=== PATIENT | male | born 1995 | race Caucasian/White ===

== ENCOUNTER 2018-12-04 15:31 | Emergency (ER) | payer MEDICAID ==
[~2018-12-04] VITALS: Ht 162.6 cm; Wt 69.9 kg
[2018-12-04 15:37] VITALS: BP 128/89
--- NOTE | 2018-12-04 15:55 | NUR ---
C/O CHEST DISCOMFORT AND PALPITATIONS X 3O MIN. PT STATES HE WAS GIVEN AN EDIBLE AND IS NOW NOT FEELING WELL. SKIN IS PINK/WARM/DRY; AAOX4 ; BEDSIDE MONITOR SHOWS ST 135S LUNGS CLEAR BL; HR EVEN AND REGULAR; PT DENIES ANY FEVER, CP, SOB, OR COUGH AT THIS TIME; PATIENT STATES PAIN OF 0/10 AT THIS TIME; VSS; PATIENT POSITIONED FOR COMFORT; HOB ELEVATED; BEDRAILS UP X2; BED DOWN. ER MD MADE AWARE OF PT STATUS.
[2018-12-04] MEDS ORDERED: NACL 0.9% 1,000 ML IV ONE ×2 (16:05→18:15)
[2018-12-04] MEDS ORDERED: LORazepam 2 MG/ML VIAL IVP ONE (16:05)
[2018-12-04 16:33] LABS: BASOPHILS # (AUTO) 0.1 K/uL (0.00-0.22); BASOPHILS % (AUTO) 0.7 % (0.0-2.0); EOSINOPHILS # (AUTO) 0.1 K/uL (0-0.4); EOSINOPHILS % (AUTO) 0.9 % (0.0-4.0); HEMATOCRIT 44.6 % (36-52); HEMOGLOBIN 14.9 g/dL (12.0-18.0); LYMPHOCYTES # (AUTO) 4.5 K/uL (2.0-11.5); LYMPHOCYTES % (AUTO) 49.9 % (20.5-51.1); MEAN CORPUSCULAR HEMOGLOBIN 28 pg (27-31); MEAN CORPUSCULAR HGB CONC 34 g/dL (33-37); MEAN CORPUSCULAR VOLUME 82.9 fL (80-94); MONOCYTES # (AUTO) 0.5 K/uL (0.8-1.0); MONOCYTES % (AUTO) 5.1 % (1.7-9.3); NEUTROPHILS # (AUTO) 3.9 K/uL (1.8-7.7); NEUTROPHILS % (AUTO) 43.4 % (42.2-75.2); PLATELET COUNT (AUTO) 215 K/uL (140-450); RED BLOOD CELL COUNT(AUTO) 5.37 MIL/uL (4.20-6.10); RED CELL DISTRIBUTION WIDTH 13.6 % (11.6-13.7); WHITE BLOOD COUNT (AUTO) 8.9 K/uL (4.8-10.8)
[2018-12-04 16:53] LABS: ALBUMIN 4.6 g/dL (3.4-5.0); ANION GAP 13.3 (8-16); CARBON DIOXIDE 26.8 mmol/L (21-32); POTASSIUM 3.1 mmol/L (3.5-5.1); TOTAL BILIRUBIN 0.4 mg/dL (0.0-1.0)
[2018-12-04 16:55] LABS: PROTHROMBIN TIME 9.8 secs (10.8-13.4)
[2018-12-04 17:43] LABS: BARBITURATE, URINE NEG. ng/ml (NEG <=200); BENZODIAZEPINE, URINE NEG. ng/mL (NEG <=200); CANNABINOID, URINE POS. ng/mL (NEG <=50); COCAINE, URINE NEG. ng/mL (NEG <=300); OPIATE, URINE NEG. ng/mL (NEG <=2000); PHENCYCLIDINE SCREEN,URINE NEG. ng/mL (NEG <=25)
[2018-12-04] MEDS ORDERED: POTASSIUM CHLORIDE 10 MEQ TABER PO ONE (17:50)
--- NOTE | 2018-12-04 18:07 | NUR ---
PT RESTING IN BED, STATED HE FEELS BETTER.
--- NOTE | 2018-12-04 19:08 | NUR ---
REPORT GIVEN TO SUE DIAZ AND NADINE DIAZ .
--- NOTE | 2018-12-04 19:35 | NUR ---
RECEIVED REPORT FROM KING RN, PT CURRENTLY RESTING COMFORTABLY WITH MOTHER AT BEDSIDE.BED IN LOW POSITION, HOB ELEVATED, SIDE RAIL X 1 UP. WILL CONITNUE TO MONITOR.
--- NOTE | 2018-12-04 20:28 | NUR ---
PT DC BY DR FARR VSS, NO SOB, 0/10 PAIN, PT GIVEN RX FOR ZOFRAN, PT TAUGHT ABOUT DX AND TX AND ALL QUESTIONS ANSWERED. PATIENT ABLE TO AMBULATE. WAS INSTRUCTED TO FOLLOW UP WITH PRIMARY CARE PROVIDER.
[2018-12-05 03:49] VITALS: BP 111/72
--- NOTE | 2018-12-05 12:31 | NUR ---
LATE ENTRY: LORAZEPAM WAS GIVEN 0.5MG ON 12/04/2018 [id number], WASTED 1.5 MG.
== END 2018-12-04 20:28 | disposition home or self-care (01) ==
LOC: MED 15:31
DX: R00.2 Palpitations (principal); T40.7X5A Adverse effect of cannabis (derivatives), initial encounter; E87.6 Hypokalemia; Y92.89 Other specified places as the place of occurrence of the external cause
CPT/HCPCS: 36415; 71045; 80053; 80305; 83735; 85025; 85610; 93005; 96374; 99284; J2060; J7030

== ENCOUNTER 2021-02-01 02:40 | Inpatient (IN) | payer MEDICAID, SELFPAY ==
[~2021-02-01] VITALS: Ht 165.1 cm; Wt 71.7 kg
[2021-02-01 02:46] VITALS: BP 111/84
--- NOTE | 2021-02-01 02:46 | NUR ---
TO BED AMBULATORY
--- NOTE | 2021-02-01 02:50 | NUR ---
PT. IS A 25 Y/O MALE WHO CAME INTO ED WITH C/O OF LOWER BACK PAIN. HE STATES THAT THE PAIN RADIATES TO HIS STOMACH AND THAT IT STARTED YESTERDAY MORNING AT AROUND 10AM. HE RATES HIS PAIN AT A 9/10 ON THE PAIN SCALE. PT. STATES THAT HE ALSO FEELS NAUSEATED, BUT HAS NOT VOMITED AND DENIES DIARRHEA. HE ALSO DENIES ANY TRAUMA. SKIN IS PINK/WARM/DRY; AAOX4 WITH EVEN AND STEADY GAIT; HR EVEN AND REGULAR; PT DENIES ANY FEVER, CP, SOB, OR COUGH AT THIS TIME; VSS; PATIENT POSITIONED FOR COMFORT; HOB ELEVATED; BEDRAILS UP X2; BED DOWN. ER MD MADE AWARE OF PT STATUS. PMH: DENIES ALLERGES: HAMZAH
[2021-02-01] MEDS ORDERED: KETOROLAC 30 MG/ML VIAL IM ONE (02:55)
[2021-02-01 03:07] LABS: APPEARANCE,URINE CLOUDY (CLEAR); BILIRUBIN,URINE NEGATIVE (NEGATIVE); BLOOD, URINE 3+ (NEGATIVE); COLOR,URINE YELLOW (YELLOW); LEUKOCYTE ESTERASE ,URINE NEGATIVE (NEGATIVE); NITRITE, URINE NEGATIVE (NEGATIVE); PH,URINE 7.5 (5.0-9.0); UGLUCOSE NEGATIVE (NEGATIVE)
[2021-02-01] MEDS ORDERED: NACL 0.9% 1,000 ML IV ONE ×3 (03:10→04:50)
[2021-02-01 03:28] LABS: BASOPHILS # (AUTO) 0.3 K/uL (0.00-0.22); BASOPHILS % (AUTO) 2.2 % (0.0-2.0); EOSINOPHILS # (AUTO) 0.1 K/uL (0-0.4); EOSINOPHILS % (AUTO) 0.8 % (0.0-4.0); HEMATOCRIT 41.6 % (36-52); HEMOGLOBIN 13.8 g/dL (12.0-18.0); LYMPHOCYTES # (AUTO) 2.3 K/uL (2.0-11.5); LYMPHOCYTES % (AUTO) 20.4 % (20.5-51.1); MEAN CORPUSCULAR HEMOGLOBIN 28 pg (27-31); MEAN CORPUSCULAR HGB CONC 33 g/dL (33-37); MEAN CORPUSCULAR VOLUME 83.6 fL (80-94); MONOCYTES % (AUTO) 8.3 % (1.7-9.3); NEUTROPHILS # (AUTO) 7.8 K/uL (1.8-7.7); NEUTROPHILS % (AUTO) 68.3 % (42.2-75.2); PLATELET COUNT (AUTO) 188 K/uL (140-450); RED BLOOD CELL COUNT(AUTO) 4.98 MIL/uL (4.20-6.10); RED CELL DISTRIBUTION WIDTH 13.6 % (11.6-13.7); WHITE BLOOD COUNT (AUTO) 11.5 K/uL (4.8-10.8)
[2021-02-01 03:37] LABS: WBC,URINE 0-5 /HPF (0-5)
[2021-02-01 04:00] LABS: ANION GAP 13.9 (8-16); CARBON DIOXIDE 27.5 mmol/L (21-32); POTASSIUM 3.4 mmol/L (3.5-5.1)
[2021-02-01 04:01] LABS: CREATININE 1.2 mg/dL (0.6-1.3); TOTAL BILIRUBIN 0.4 mg/dL (0.0-1.0)
[2021-02-01] MEDS ORDERED: cefTRIAXone 1,000 MG VIAL ONE (04:11)
[2021-02-01] MEDS ORDERED: POTASSIUM CHLORIDE 10 MEQ TABER PO ONE (04:20)
--- NOTE | 2021-02-01 04:33 | NUR ---
PT. IS CALM AND COOPERATIVE. RESTING COMFORTABLY IN BED. VOICES NO COMPLAINTS.
[2021-02-01] MEDS ORDERED: MORPHINE SULFATE 4 MG/ML SYR IVP ONE (04:50)
--- NOTE | 2021-02-01 05:48 | NUR ---
TASHI (ROCIO) COMPLETED AND TAKEN TO LAB.
[2021-02-01] MEDS ORDERED: DEXT 5% /NACL 0.9% 1,000 ML IV SCH (06:20)
--- NOTE | 2021-02-01 07:30 | NUR ---
Received report from Jakub RN, patient appears to be resting at this time. Patient on bedside conveyor monitor.
[2021-02-01] MEDS ORDERED: ACETAMINOPHEN 325 MG TAB PO PRN (07:55)
[2021-02-01] MEDS ORDERED: guaiFENesin DM 200/20 MG-10 ML 10 ML UDC PO PRN (07:55)
[2021-02-01] MEDS ORDERED: ONDANSETRON 4 MG/2 ML VIAL IM/IVP PRN (07:55)
[2021-02-01] MEDS ORDERED: POTASSIUM CHLORIDE 10 MEQ TABER PO PRN (07:55)
[2021-02-01] MEDS ORDERED: ZOLPIDEM 5 MG TAB PO PRN (07:55)
[2021-02-01] MEDS ORDERED: DOCUSATE SODIUM 100 MG GELCAP PO PRN (07:55)
[2021-02-01] MEDS ORDERED: HYDROcodone/APAP 7.5/325 MG 1 TAB PO PRN (07:55)
--- NOTE | 2021-02-01 08:18 | NUR ---
MRSA swab collected and walked down to lab
[2021-02-01] MEDS: PANTOPRAZOLE 40 MG TABEC PO SCH (08:46)
[2021-02-01] MEDS: TAMSULOSIN 0.4 MG CAP PO SCH ×2 (08:46→20:08)
[2021-02-01] MEDS: DEXT 5% /NACL 0.9% 1,000 ML IV SCH (09:15)
[2021-02-01 09:35] LABS: MAGNESIUM 2.2 mg/dL (1.8-2.4); THYROID STIMULATING HORMONE 2.56 uIU/mL (0.34-3.74)
[2021-02-01 10:00] LABS: PROTHROMBIN TIME 9.6 secs (10.8-13.4)
[2021-02-01 10:14] LABS: CHOL/HDL RATIO 4.6 (1-4.5)
--- NOTE | 2021-02-01 11:23 | NUR ---
Patient will be admitted to care of Dr. Jorgensen. Admited to TELE. Will go to room 106A. Belongings list completed. Report to Leandra.
[2021-02-01 11:30] VITALS: BP 116/65
--- NOTE | 2021-02-01 11:30 | NUR ---
PRIOR TO PATIENT ARRIVAL RECEIVED REPORT FROM ED NURSE. PT RESTING IN BED. ABLE TO MAKE NEEDS KNOWN. RESPIRATIONS EVEN AND UNLABORED WITH NO SOB OR RESPIRATORY DISTRESS. SKIN WARM AND DRY TO TOUCH. SAFETY MEASURES IN PLACE. WILL CONTINUE TO MONITOR
--- NOTE | 2021-02-01 11:45 | NUR ---
PT OFF TO OR. REPORT GIVEN TO OR STAFF. WILL CONTINUE TO MONITOR
[2021-02-01] MEDS ORDERED: fentaNYL citrate 0.05 MG/ML VIAL IVP PRN (12:10)
[2021-02-01] MEDS ORDERED: ONDANSETRON 4 MG/2 ML VIAL IVP PRN (12:10)
[2021-02-01] MEDS: LACTATED RINGERS 1,000 ML IV SCH ×2 (12:10→20:07)
[2021-02-01] MEDS ORDERED: diphenhydrAMINE 50 MG/ML VIAL IVP PRN (12:10)
[2021-02-01] MEDS ORDERED: MEPERIDINE 25 MG/ML SYR IVP PRN (12:10)
[2021-02-01 12:22] LABS: BARBITURATE, URINE NEGATIVE ng/ml (NEG <=200); BENZODIAZEPINE, URINE NEGATIVE ng/mL (NEG <=200); CANNABINOID, URINE NEGATIVE ng/mL (NEG <=50); COCAINE, URINE NEGATIVE ng/mL (NEG <=300); OPIATE, URINE NEGATIVE ng/mL (NEG <=2000); PHENCYCLIDINE SCREEN,URINE NEGATIVE ng/mL (NEG <=25)
[2021-02-01] MEDS ORDERED: SEVOFLURANE 250 ML BTL INH ONE (13:20)
[2021-02-01] MEDS ORDERED: ROCURONIUM 50 MG/5 ML VIAL IV ONE (13:20)
[2021-02-01] MEDS ORDERED: KETOROLAC 30 MG/ML VIAL ONE (13:20)
[2021-02-01] MEDS ORDERED: METOCLOPRAMIDE 10 MG/2 ML INJ VIAL ONE (13:20)
[2021-02-01] MEDS ORDERED: NEOSTIGMINE 1:1000 10 MG/10 ML VIAL ONE (13:20)
[2021-02-01] MEDS ORDERED: ONDANSETRON 4 MG/2 ML VIAL ONE (13:20)
[2021-02-01] MEDS ORDERED: DEXAMETHASONE 4 MG/ML VIAL ONE (13:20)
[2021-02-01] MEDS ORDERED: fentaNYL citrate 0.05 MG/ML VIAL ONE (13:20)
[2021-02-01] MEDS ORDERED: LIDOCAINE 2% 100 MG/5 ML SYR IVP ONE (13:20)
[2021-02-01] MEDS ORDERED: PROPOFOL 200 MG/20 ML VIAL IV ONE (13:20)
[2021-02-01] MEDS ORDERED: GLYCOPYRROLATE 0.2 MG/ML VIAL ONE (13:20)
--- NOTE | 2021-02-01 14:00 | NUR ---
PT BACK FROM SURGERY. REPORT GIVEN AT BEDSIDE. POST OP VITAL SIGNS OBTAINED. PT IS STABLE. WILL CONTINUE TO MONITOR
[2021-02-01] MEDS ORDERED: MORPHINE SULFATE 2 MG/ML SYR IVP PRN (14:35)
--- NOTE | 2021-02-01 14:48 | NUR ---
PT COMPLAINED OF SEVERE PAIN. PRN MORPHINE ADMINISTERED PRESCRIBED PER MD ORDER. PT TOLERATED WELL. MEDICATION EDUCATION ADMINISTERED. PT VERBALIZED UNDERSTANDING. SAFETY MEASURES IN PLACE. WILL CONTINUE TO MONITOR
--- NOTE | 2021-02-01 15:51 | NUR ---
PATIENT HAS BEEN SCREENED AND CATEGORIZED LOW NUTRITION RISK. PATIENT WILL BE SEEN WITHIN 7 DAYS OF ADMISSION. 02/07/[address]
[2021-02-01 16:00] VITALS: BP 104/66
--- NOTE | 2021-02-01 16:30 | NUR ---
PATIENT RESTING IN BED. ABLE TO MAKE NEEDS KNOWN. RESPIRATIONS EVEN AND UNLABORED WITH NO SOB OR RESPIRATORY DISTRESS. SKIN WARM AND DRY TO TOUCH. SAFETY MEASURES IN PLACE. WILL CONTINUE TO MONITOR
--- NOTE | 2021-02-01 17:45 | NUR ---
PT RESTING IN BED. ABLE TO MAKE NEEDS KNOWN. RESPIRATIONS EVEN AND UNLABORED WITH NO SOB OR RESPIRATORY DISTRESS. SAFETY MEASURES IN PLACE. WILL CONTINUE TO MONITOR
--- NOTE | 2021-02-01 19:18 | NUR ---
ENDORSED AT BEDSIDE TO NIGHTSHIFT NURSE FOR CONTINUITY OF CARE. PT IS STABLE
--- NOTE | 2021-02-01 19:25 | NUR ---
RECEIVED REPORT AND CARE FROM DAYSHIFT RN. PATIENT ALERT AND ORIENTED X4 TO PERSON, PLACE, TIME AND EVENT. PATIENT RESTING IN A POSITION OF COMFORT WITH THE HOB 30 DEGREES, AIRWAY OPEN PATENT, CLEAR AND MAINTAINABLE, ON ROOM AIR, OXYGEN SATURATION AT 97%. PATIENT HAS FEEDING ORDER OF REGULAR DIET, TOLERATING WELL. PATIENT CONNECTED TO CONTINUOUS TELE MONITOR, NSR IN TELE AT 92 HR. WILL CONTINUE TO CLOSELY MONITOR. PATIENT HAS IV SITES OF A LEFT AC 20G, DRESSING DRY, INTACT, SITE FLUSHING WELL. IV DRIPS RUNNING INCLUDE LACTATED RINGERS AT 120 ML/HR. PATIENT DRY WEIGHT IS APPROXIMATELY 72.1 KG. PATIENT CURRENTLY ABLE TO AMBULATE WITH RN ASSISTANCE AND ABLE TO USE BEDSIDE URINAL. PATIENT DENIES ANY PAIN WHEN ASKED. PATIENT IS CURRENTLY BEING OFFLOADED FROM PRESSURE POINTS WITH USE OF PILLOWS AND FREQUENT REPOSITIONING, EDUCATED ON THE IMPORTANCE OF REPOSITIONING FOR WOUND PREVENTION. THE CALL LIGHT IS PLACED WITHIN REACH AT THE BEDSIDE AND EDUCATED/FAMILIARIZED WITH CONTROLS. PROMOTING A RESTFUL ENVIRONMENT WITH DECREASED STIMULI IN THE ROOM. WILL CONTINUE TO REASSESS OFTEN, CLOSELY MONITOR AND FREQUENTLY ROUND THROUGHOUT THE SHIFT.
[2021-02-01 20:00] VITALS: BP 102/70
--- NOTE | 2021-02-01 20:30 | NUR ---
SCHEDULED MEDICATIONS GIVEN ORDERED BY MD, TOLERATING WELL. WILL CONTINUE TO CLOSELY MONITOR AND FREQUENTLY ROUND.
--- NOTE | 2021-02-01 21:04 | NUR ---
PATIENT CONTINUING TO REST IN A POSITION OF COMFORT, NO SIGNS OF DISTRESS OBSERVED WHILE AT BEDSIDE. PATIENT TRYING TO GET SOME REST. WILL CONTINUE TO CLOSELY MONITOR AND FREQUENTLY ROUND.
--- NOTE | 2021-02-01 23:02 | NUR ---
PATIENT ASLEEP IN A POSITION OF COMFORT, NO OBVIOUS SIGNS OF DISTRESS OBSERVED WHILE AT BEDSIDE. WILL CONTINUE TO REASSESS OFTEN, CLOSELY MONITOR AND FREQUENTLY ROUND.
[2021-02-02] VITALS: BP 110/60
--- NOTE | 2021-02-02 01:17 | NUR ---
GIVEN PRN NORCO FOR PAIN, PATIENT STATED FEELING PENILE PAIN POST PROCEDURE, ABLE TO URINATE. WILL CONTINUE TO REASSESS OFTEN, CLOSELY MONITOR AND FREQUENTLY ROUND.
--- NOTE | 2021-02-02 02:17 | NUR ---
PRN PAIN MEDICATION INTERVENTION EFFECTIVE, PATIENT STATED PAIN HAS REDUCED. WILL CONTINUE TO REASSESS OFTEN, CLOSELY MONITOR AND FREQUENTLY ROUND.
--- NOTE | 2021-02-02 03:28 | NUR ---
PATIENT ASLEEP IN A POSITION OF COMFORT, HOB 30 DEGREES, AIRWAY OPEN, CLEAR, PATENT AND MAINTAINABLE. NO OBVIOUS SIGNS OF DISTRESS OBSERVED WHILE AT BEDSIDE. WILL CONTINUE TO REASSESS OFTEN, CLOSELY MONITOR AND FREQUENTLY ROUND.
[2021-02-02 04:00] VITALS: BP 98/68
[2021-02-02] MEDS: LACTATED RINGERS 1,000 ML IV SCH ×3 (04:26→21:30)
--- NOTE | 2021-02-02 05:30 | NUR ---
PATIENT RESTING AWAKE, STATED TRYING PAIN MEDICATION HELPED AND TRYING TO SLEEP MORE, NO OBVIOUS SIGNS OF DISTRESS OBSERVED AT BEDSIDE. WILL CONTINUE TO REASSESS OFTEN, CLOSELY MONITOR AND FREQUENTLY ROUND.
[2021-02-02 05:59] LABS: ANION GAP 13.8 (8-16); CARBON DIOXIDE 27.9 mmol/L (21-32); CREATININE 0.9 mg/dL (0.6-1.3); POTASSIUM 3.7 mmol/L (3.5-5.1)
[2021-02-02 06:03] LABS: BASOPHILS % (AUTO) 0.1 % (0.0-2.0); HEMATOCRIT 41.9 % (36-52); HEMOGLOBIN 14.1 g/dL (12.0-18.0); LYMPHOCYTES # (AUTO) 1.5 K/uL (2.0-11.5); LYMPHOCYTES % (AUTO) 14.5 % (20.5-51.1); MEAN CORPUSCULAR HEMOGLOBIN 29 pg (27-31); MEAN CORPUSCULAR HGB CONC 34 g/dL (33-37); MEAN CORPUSCULAR VOLUME 84.6 fL (80-94); MONOCYTES # (AUTO) 0.6 K/uL (0.8-1.0); MONOCYTES % (AUTO) 5.6 % (1.7-9.3); NEUTROPHILS # (AUTO) 8.5 K/uL (1.8-7.7); NEUTROPHILS % (AUTO) 79.8 % (42.2-75.2); PLATELET COUNT (AUTO) 188 K/uL (140-450); RED BLOOD CELL COUNT(AUTO) 4.95 MIL/uL (4.20-6.10); RED CELL DISTRIBUTION WIDTH 14.3 % (11.6-13.7); WHITE BLOOD COUNT (AUTO) 10.6 K/uL (4.8-10.8)
--- NOTE | 2021-02-02 07:30 | NUR ---
ENDORSED CARE AND GAVE REPORT TO DAYSHIFT RN, VS STABLE.
--- NOTE | 2021-02-02 07:35 | NUR ---
RECEIVED PT FROM POLYSOMNOGRAPHIC TECHNOLOGIST NURSE, PT IS ASLEEP AND LYING ON THE BED WITH SIDE RAILS UP AND CALL LIGHT WITHIN REACH, IV LINES NOTED ON THE LAC G.20 WITH D5 NS INFUSING AT 40ML/HR, INTACT, PT IS ON RA AND RESPIRATION IS EVEN, VISIBLE CHEST RISE AND FALL, NO SIGN OF DISTRESS NOTED AND WILL MONITOR PT.
[2021-02-02] MEDS: DEXT 5% /NACL 0.9% 1,000 ML IV SCH (07:55)
[2021-02-02 08:00] VITALS: BP 102/58
[2021-02-02] MEDS: TAMSULOSIN 0.4 MG CAP PO SCH ×2 (09:18→22:16)
[2021-02-02] MEDS: PANTOPRAZOLE 40 MG TABEC PO SCH (09:18)
--- NOTE | 2021-02-02 09:18 | NUR ---
PT WAS GIVEN THE SCHEDULED AM MEDICATIONS NOW, TOLERATED AND NO SIGN OF DISTRESS NOTED. WILL CONTINUE TO CHRISTIAN LY.
[2021-02-02 10:07] LABS: T4 (THYROXINE) 7.6 ug/dL (4.5-12.0)
--- NOTE | 2021-02-02 11:45 | NUR ---
PT IS EATING HIS LUNCH NOW, DENIES PAIN.
[2021-02-02 12:00] VITALS: BP 115/53
--- NOTE | 2021-02-02 13:48 | NUR ---
PT WAS DOWNGRADED TO MS NOW.
--- NOTE | 2021-02-02 15:50 | NUR ---
PT IS RESTING NOW AND WATCHING TV, DENEIS PAIN AND NO SIGN OF DISTRESS NOTED.
[2021-02-02 16:00] VITALS: BP 107/55
--- NOTE | 2021-02-02 19:15 | NUR ---
ENDORSED PT TO MAJOR APPLIANCE ASSEMBLY SUPERVISOR NURSE, FOR CONTINUITY OF CARE.
--- NOTE | 2021-02-02 19:30 | NUR ---
RECEIVED REPORT FROM ANTHONY DIAZ DAYSHIFT NURSE AT BEDSIDE FOR CONTINUITY OF CARE, PT IN STABLE CONDITION.
[2021-02-02 20:00] VITALS: BP 105/68
--- NOTE | 2021-02-02 20:00 | NUR ---
PT LYING IN BED AOX4 WITH RAC 20 G INTACT AND RUNNING D5 NORMAL SALINE AT 40MLS/HR. V/S FOLLOWS: T 98.2 P 70 R 18 B/P 105/68 02 98% ON ROOM AIR. PT DENIES PAIN BUT HAS C/O OF BLOOD TINGED URINE. WILL CONTINUE TO MONITOR URINE OUTPUT AND VITAL SIGNS. ALL UNIVERSAL FALLS PRECAUTIONS IN PLACE.
--- NOTE | 2021-02-02 21:30 | NUR ---
MOTHER WAS UPDATED REGARDING PT CONDITION PER REQUEST. REINFORCED NEW VISITOR POLICY AND WITH REINFORCEMENT SHE VERBALIZED UNDERSTANDING. PT WAS GIVEN FLOMAX ORDERED. EDUCATION REGARDING MEDICATION PROVIDED AT BEDSIDE. PT VERBALIZED UNDERSTANDING. HE FT A 300MLS OF BLOOD TINGED URINE IN URINAL. PT ENCOURAGED TO HYDRATE PER POC. PT VERBALIZED UNDERSTANDING.
--- NOTE | 2021-02-02 22:30 | NUR ---
ROUNDS DONE, PT DENIES ANY PAIN . ANOTHER 300MLS OF BLOOD TINGED URINE LEFT IN URINAL. ALL UNIVERSAL FALLS PRECAUTIONS IN PLACE.
--- NOTE | 2021-02-03 | NUR ---
ROUNDS DONE PT SLEEPING, ALL UNIVERSAL FALLS PRECAUTIONS IN PLACE. D5 N/S CONTINUES AT 40MLS/HR.
--- NOTE | 2021-02-03 02:00 | NUR ---
ROUNDS DONE, PT IN BED ASLEEP NO S/S OF PAIN OR DISTRESS NOTED. FLUIDS RUNNING ORDERED, ALL UNIVERSAL FALLS PRECAUTIONS IN PLACE.
[2021-02-03 04:00] VITALS: BP 96/53
[2021-02-03] MEDS: LACTATED RINGERS 1,000 ML IV SCH (05:44)
[2021-02-03 06:06] LABS: ANION GAP 11.2 (8-16); CARBON DIOXIDE 27.5 mmol/L (21-32); CREATININE 0.9 mg/dL (0.6-1.3); POTASSIUM 3.7 mmol/L (3.5-5.1)
[2021-02-03 06:11] LABS: BASOPHILS % (AUTO) 0.3 % (0.0-2.0); EOSINOPHILS % (AUTO) 0.6 % (0.0-4.0); HEMATOCRIT 39.6 % (36-52); HEMOGLOBIN 13.3 g/dL (12.0-18.0); LYMPHOCYTES # (AUTO) 3.3 K/uL (2.0-11.5); LYMPHOCYTES % (AUTO) 41.2 % (20.5-51.1); MEAN CORPUSCULAR HEMOGLOBIN 28 pg (27-31); MEAN CORPUSCULAR HGB CONC 34 g/dL (33-37); MEAN CORPUSCULAR VOLUME 84.8 fL (80-94); MONOCYTES # (AUTO) 0.5 K/uL (0.8-1.0); MONOCYTES % (AUTO) 6.9 % (1.7-9.3); PLATELET COUNT (AUTO) 191 K/uL (140-450); RED BLOOD CELL COUNT(AUTO) 4.68 MIL/uL (4.20-6.10); RED CELL DISTRIBUTION WIDTH 14.3 % (11.6-13.7); WHITE BLOOD COUNT (AUTO) 7.9 K/uL (4.8-10.8)
--- NOTE | 2021-02-03 07:51 | NUR ---
RECEIVED PT FROM CHILLER TECHNICIAN RN. PT RESTING IN BED NO S/S OF DISTRESS CALL LIGHT IS WITHIN REACH. EYES CLOSED EASY TO AROUSE
[2021-02-03] MEDS: PANTOPRAZOLE 40 MG TABEC PO SCH (08:29)
[2021-02-03] MEDS: DEXT 5% /NACL 0.9% 1,000 ML IV SCH (08:29)
[2021-02-03] MEDS: TAMSULOSIN 0.4 MG CAP PO SCH (08:31)
--- NOTE | 2021-02-03 08:32 | NUR ---
MEDICATIONS GIVEN PER MD ORDER. PT EDUCATED AND VERBALIZED UNDERSTANDING. NO S/S OF DISTRESS AT THIS TIME.
--- NOTE | 2021-02-03 08:33 | NUR ---
PT REPORTS PAIN DURING URINATION
--- NOTE | 2021-02-03 08:34 | NUR ---
300 MLS OUT. TEA COLORS STREAKS OF BLOOD
[2021-02-03] MEDS ORDERED: TAMS0.4C96 PO (10:05)
[2021-02-03] MEDS ORDERED: CEPH250C16 PO (10:05)
--- NOTE | 2021-02-03 10:08 | NUR ---
PT ASSESSED. LUNGS ARE CLEAR, CVA TENDERNESS. PT REORIENTED TO ROOM. CALL EXTENSION PROVIDED TO CALL FOR EMERGENT NEEDS. CALL LIGHT WITHIN REACH ALL SAFETY MEASURES ARE IN PLACE.
[2021-02-03 11:13] VITALS: BP 101/59
--- NOTE | 2021-02-03 11:19 | NUR ---
PT IN BED RESTING NO S/S OF DISTRESS AT THIS TIME.
--- NOTE | 2021-02-03 12:50 | NUR ---
PT LEFT. IV REMOVED CANULA INTACT . PT EDUCATED AND VERBALIZED UNDERSTANDING ON CONTINUITY OF CARE. PT CALLED DR. BLOOD MADE APPOINTMENT FOR SATURDAY.
== END 2021-02-03 12:55 | disposition home or self-care (01) | DRG 465 ==
LOC: MED 02:40 → MTU 06:19
PROVIDERS: ADMIT Family Medicine; ATTEND Family Medicine
PROC: BT1FZZZ Fluoroscopy of Left Kidney, Ureter and Bladder (ICD-10-PCS; 2021-02-01)
PROC: 0T778DZ Dilation of Left Ureter with Intraluminal Device, Via Natural or Artificial Opening Endoscopic (ICD-10-PCS; principal; 2021-02-01 12:00)
DX: N13.2 Hydronephrosis with renal and ureteral calculous obstruction (principal); E87.6 Hypokalemia; Z20.822 Contact with and (suspected) exposure to COVID-19; Z82.49 Family history of ischemic heart disease and other diseases of the circulatory system; Z84.1 Family history of disorders of kidney and ureter
CPT/HCPCS: 36415; 71045; 80048; 80053; 80305; 81001; 82150; 83036; 83605; 83690; 83735; 83880; 84100; 84436; 84439; 84443; 84479; 84484; 85025; 85610; 85730; 87040; 87081; 96365; 96366; 96372; 96375; 99291; 99292; C1758; C1769; C2617; J0696; J1100; J1885; J2001; J2270; J2405; J2704; J2710; J2765; J3010; J3490; J7060; J7120

== ENCOUNTER 2022-08-26 22:56 | Emergency (ER) | payer MEDICAID ==
[~2022-08-26] VITALS: Ht 165.1 cm; Wt 72.6 kg
[~2022-08-26 22:56] MED LIST: CEPH250C16 PO; TAMS0.4C96 PO
[2022-08-26 23:03] VITALS: BP 116/82
--- NOTE | 2022-08-26 23:06 | NUR ---
TO LOBBY A/W BED AMBULATORY
--- NOTE | 2022-08-26 23:15 | NUR ---
PT TAKEN TO BED 7
[2022-08-26 23:17] VITALS: BP 116/82
--- NOTE | 2022-08-26 23:31 | NUR ---
26/M BIB SELF C/C RASHES ALL OVER HIS BODY FOR X1 WEEK. PATIETN REPORTS INCREASED REDNESS, BUMPS AND ITCHYNESS ON GROIN AREA. REPORTS PARTNER HAVING SIMILAR RASH. DENIES N/V/D. VACCINES UTD DENIES PMHX, RX NKA
--- NOTE | 2022-08-26 23:52 | NUR ---
Patient being evaluated by physician at bedside.
[2022-08-27] MEDS ORDERED: CHLO480L2 TP (00:04)
[2022-08-27] MEDS ORDERED: DOXY-487 PO (00:04)
--- NOTE | 2022-08-27 00:20 | NUR ---
Written and verbal after care instructions given and explained. Patient alert, oriented and verbalized understanding of instructions. Ambulatory with steady gait. All questions addressed prior to discharge. ID band removed. Patient advised to follow up with PMD. Rx of DOXY given. Patient educated on indication of medication including possible reaction and side effects. Opportunity to ask questions provided and answered.
== END 2022-08-27 00:20 | disposition home or self-care (01) ==
LOC: MED 22:56
DX: R21 Rash and other nonspecific skin eruption (principal); B95.8 Unspecified staphylococcus as the cause of diseases classified elsewhere; Z79.899 Other long term (current) drug therapy
CPT/HCPCS: 99283

== ENCOUNTER 2022-08-29 01:23 | Emergency (ER) | payer MEDICAID ==
[~2022-08-29] VITALS: Ht 165.1 cm; Wt 72.6 kg
[~2022-08-29 01:23] MED LIST changes: +CHLO480L2 TP; +DOXY-487 PO
[2022-08-29 02:00] VITALS: BP 115/79
[2022-08-29] MEDS ORDERED: HYDR-637 PO (03:42)
[2022-08-29] MEDS ORDERED: ELIMC TP (03:42)
[2022-08-29] MEDS ORDERED: PRED20TA5 PO (03:42)
[2022-08-29 04:05] VITALS: BP 115/79
--- NOTE | 2022-08-29 04:05 | NUR ---
Patient discharged with v/s stable. Written and verbal after care instructions given and explained. Patient alert, oriented and verbalized understanding of instructions. Ambulatory with steady gait. All questions addressed prior to discharge. ID band removed. Patient advised to follow up with PMD. Rx of ELIMITE, HYDRXYZINE AND PREDINOSE given. Patient educated on indication of medication including possible reaction and side effects. Opportunity to ask questions provided and answered.
== END 2022-08-29 04:05 | disposition home or self-care (01) ==
LOC: MED 01:23
DX: B86 Scabies (principal); Z79.899 Other long term (current) drug therapy
CPT/HCPCS: 99283

== ENCOUNTER 2023-10-28 18:33 | Emergency (ER) | payer MEDICAID ==
[~2023-10-28] VITALS: Ht 162.6 cm; Wt 78.0 kg
[~2023-10-28 18:33] MED LIST changes: +ELIMC TP; +HYDR-637 PO; +PRED20TA5 PO
[2023-10-28 18:42] VITALS: BP 126/71; PULSE 133; RESP 18; TEMP 102.7; O2SAT 95
[2023-10-28] MEDS: ACETAMINOPHEN EXTRA STRENGTH 500 MG TAB PO ONE (20:00)
[2023-10-28 20:38] LABS: FLU A ANTIGEN negative (NEGATIVE); FLU B ANTIGEN NEGATIVE (NEGATIVE)
[2023-10-28] MEDS ORDERED: IBUP-1842 PO (20:58)
[2023-10-28] MEDS ORDERED: AMOX875T3 PO (20:58)
[2023-10-28] MEDS ORDERED: ACET-10509 PO (20:58)
[2023-10-28 22:05] VITALS: BP 126/71; PULSE 98; RESP 18; TEMP 99.3; O2SAT 95
== END 2023-10-28 22:05 | disposition home or self-care (01) ==
LOC: MED 18:33
DX: J02.9 Acute pharyngitis, unspecified (principal); Z20.822 Contact with and (suspected) exposure to COVID-19; R51.9 Headache, unspecified; R42 Dizziness and giddiness; Z79.899 Other long term (current) drug therapy
CPT/HCPCS: 87081; 99283